=== PATIENT | female | born 1990 ===

== ENCOUNTER 2016-10-18 09:10 | Emergency (ER) | payer OTHER ==
[2016-10-18 09:14] VITALS: BP 124/75; PULSE 78; TEMP 98; O2SAT 99; BMI 24.0
--- NOTE | 2016-10-18 10:25 | ED PDOC ---
HPI: Abdomen Chief Complaint (Provider): abdominal pain History Per: Patient History/Exam Limitations: no limitations Onset/Duration Of Symptoms: Hrs (start today 6:30 am), Gradual, Persistent Outside of [place] travel?: No Current Symptoms Are (Timing): Still Present Severity: Severe Pain Scale Rating Of: 9 Location Of Pain/Discomfort: Epigastric Quality Of Discomfort: Stabbing Associated Symptoms: denies: Fever, Chills, Nausea, Vomiting, Loss Of Appetite, Chest Pain, Urinary Symptoms Exacerbating Factors: None Alleviating Factors: None Additional History Per: Patient Abnormal Vaginal Bleeding: No Last Menstral Period: unknown : 2 Para: 1 (Normal vaginal delivery.) Miscarriage: 0 <Jean-Paul Doran - Last Filed: 10/18/16 15:26> <Ari Purdy - Last Filed: 10/19/16 10:36> Time Seen by Provider: 10/18/16 09:29 Chief Complaint (Nursing): Abdominal Pain Additional Complaint(s): CC: abdominal pain. HPI: 26 yo female without PMH presents to the ED complaining of abdominal pain localized in the epigastric area 12/23, stabbing, no radiated, starting early today in the morning about 6-6:30 am, no related with any particular event, no alleviating factors no aggravating factors. Patient refers she is about 9 weeks, she does not remember the LMP. Denies fever, vomiting, nausea, headache, vaginal bleeding, vaginal discharge, any injury, no urinary symptoms. Sleeping well, no diet changes. ROS: negative except as above. 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 (Jean-Paul Doran) Supervising Attending Note - Supervising Attending Note The Documented history was done by the: Physician Architectural Engineer, Attending Physician The documented physical exam was done by the: Physician Architectural Engineer, Attending Physician The documented procedures were done by the: Physician Architectural Engineer, Attending Physician - Attestation: I have personally seen and examined this patient.: Yes I have fully participated in the care of the patient.: Yes I have reviewed all pertinent clinical information: Yes <Ari Purdy - Last Filed: 10/19/16 10:36> Past Medical History Reviewed: Nursing Documentation, Vital Signs - Medical History PMH: No Chronic Diseases - Surgical History Surgical History: No Surg Hx - Family History Family History: States: No Known Family Hx - Living Arrangements Living Arrangements: With Family - Social History Current smoker - smoking cessation education provided: No Alcohol: None Drugs: Denies <Jean-Paul Doran - Last Filed: 10/18/16 15:26> <Ari Purdy - Last Filed: 10/19/16 10:36> Vital Signs: Last Vital Signs Temp 98 F 10/18/16 09:13 Pulse 78 10/18/16 09:13 Resp BP 124/75 10/18/16 09:13 Pulse Ox 99 10/18/16 15:31 - Allergies Allergies/Adverse Reactions: Allergies Allergy/AdvReac Type Severity Reaction Status Date / Time No Known Allergies Allergy Verified 10/18/16 09:34 Review of Systems ROS Statement: Except As Marked, All Systems Reviewed And Found Negative Constitutional: Negative for: Fever, Chills, Sweats, Weakness Eyes: Negative for: Pain, Vision Change ENT: Negative for: Ear Pain, Mouth Pain Cardiovascular: Negative for: Chest Pain, Palpitations, Edema Respiratory: Negative for: Cough, Shortness of Breath Gastrointestinal: Positive for: Abdominal Pain (Epigastric area). Negative for : Nausea, Vomiting, Diarrhea Genitourinary Female: Negative for: Dysuria, Vaginal Discharge, Vaginal Bleeding , Pelvic Pain Musculoskeletal: Negative for: Neck Pain, Back Pain, Leg Pain Skin: Positive for: Other (normal color) Neurological: Negative for: Weakness, Numbness, Confusion, Altered Mental Status , Headache Psych: Negative for: Anxiety <DoranCayden bestheidi - Last Filed: 10/18/16 15:26> Physical Exam - Reviewed Nursing Documentation Reviewed: Yes Vital Signs Reviewed: Yes - Physical Exam Appears: Positive for: Uncomfortable (Due to abdominal pain) Head Exam: Positive for: ATRAUMATIC, NORMOCEPHALIC Skin: Positive for: Normal Color, Warm, Dry Eye Exam: Positive for: Normal appearance, EOMI, PERRL ENT: Positive for: Normal ENT Inspection Neck: Positive for: Normal, Supple, Trachea Midline Cardiovascular/Chest: Positive for: Regular Rate, Rhythm. Negative for: Edema, Murmur Respiratory: Positive for: Normal Breath Sounds Pulses-Carotid (L): 2+ Pulses-Carotid (R): 2+ Pulses-Radial (L): 2+ Pulses-Radial (R): 2+ Gastrointestinal/Abdominal: Positive for: Bowel Sounds, Soft, Tenderness (LUQ tenderness and LLQ to palpation.), Mass. Negative for: Distended, Guarding Back: Positive for: Normal Inspection Extremity: Positive for: Normal ROM Neurologic/Psych: Positive for: Alert, artist model II-XII, Oriented <Jean-Paul Doran - Last Filed: 10/18/16 15:26> - Laboratory Results Result Diagrams: 10/18/16 10:50 10/18/16 10:50 Urine POC: Positive - ECG O2 Sat by Pulse Oximetry: 99 - Progress Re-evaluation Time: 15:00 Condition: Re-examined, Improved <Jean-Paul Doran - Last Filed: 10/18/16 15:26> - Laboratory Results Result Diagrams: 10/18/16 10:50 10/18/16 10:50 <Ari Purdy - Last Filed: 10/19/16 10:36> Medical Decision Making <Jean-Paul Doran - Last Filed: 10/18/16 15:26> <Ari Purdy - Last Filed: 10/19/16 10:36> Medical Decision Making: Time: 10:50 Impression: 26 yo female without PMH presents to the ED complaining of abdominal pain localized in the epigastric area. Plan: CBC. CMP. Urinalysis. Urine dipstick. Beta-HCG quantitative. Renal US. Transvaginal US. Reeval (Jean-Paul Doran) US OB FINDINGS: LMP: Unknown Prior examinations from the current : None TECHNIQUE: Real-time 2D imaging, duplex and color Doppler. FINDINGS: Cardiac activity: Present Rate: 178 BPM Measurements: [place] rump length: 2.07 cm Gestational age based on CRL 8 weeks 5 days Gestational age based on gestational sac measurement 10 weeks 1 day Gestational age derived from LMP: Cannot be ascertained based in the absence of a reliable/ known LMP GOPAL based on LMP: Cannot be ascertained based in the absence of a reliable/ known LMP GOPAL based on biometry: 05/20/2017 Gestational concordance documented Yolk sac identified Uterus: Unremarkable. No Cervical abnormalities: Negative examination for cervical dilatation or effacement. Closed cervix cervical length 3.76 cm Subchorionic hemorrhage: Subcentimeter subchorionic hemorrhage. ADNEXA: Right: 3.5 x 2.9 cm. Simple cyst 1.2 cm Normal Doppler arterial waveform documented. Left: 1.4 x 2.8 cm. Normal Doppler arterial waveform documented Fluid in the cul-de-sac: None IMPRESSION: 9 weeks 3 days live intrauterine gestation. Subcentimeter subchorionic hemorrhage. US Renal PROCEDURE: Ultrasound of the Kidneys HISTORY: Left flank pain COMPARISON: None available. TECHNIQUE: Grayscale imaging was performed. FINDINGS: RIGHT KIDNEY: Measures: 11.0 cm. Normal in size, contour and echogenicity. No stone, solid mass lesion or hydronephrosis visualized. LEFT KIDNEY: Measures: 12.2 cm. Normal in size, contour and echogenicity. No stone, solid mass lesion or hydronephrosis visualized. OTHER FINDINGS: None. IMPRESSION: No hydronephrosis or nephrolithiasis. (Ari Purdy) Disposition <Jean-Paul Doran - Last Filed: 10/18/16 15:26> - Patient ED Disposition Is Patient to be Admitted: No Discussed With .: Jose Lao Doctor Will See Patient In The: Office Counseled Patient/Family Regarding: Studies Performed, Diagnosis, Need For Followup - Disposition Disposition: Routine/Home Disposition Time: 15:08 <Ari Purdy - Last Filed: 10/19/16 10:36> - Clinical Impression Clinical Impression: Abdominal pain during , Subchorionic hematoma in first trimester - Disposition Referrals: Jose Lao MD [Family Provider] - Condition: GOOD Additional Instructions: Follow up with your PCP in 2-3 days. Return for worsening. Instructions: Threatened Miscarriage (ED), Subchorionic Hemorrhage (ED)
[2016-10-18 11:09] LABS: BASO % 0.4 % (0.0-2.0); EOS % 0.5 % (0.0-4.0); HEMOGLOBIN 12.7 g/dL (12.0-16.0); LYMPH # 1.9 K/uL (1.0-4.3); LYMPH % 20.9 % (20.0-40.0); MEAN CELL VOLUME 83.4 fl (81.0-99.0); MEAN CORPUSCULAR HEMOGLOBIN 28.7 pg (27.0-31.0); MEAN CORPUSCULAR HGB CONC 34.4 g/dL (33.0-37.0); MEAN PLATELET VOLUME 8.2 fl (7.2-11.7); MONO # 0.6 K/uL (0.0-0.8); MONO % 6.3 % (0.0-10.0); NEUT # 6.6 K/uL (1.8-7.0); NEUT % 71.9 % (50.0-75.0); RBC 4.42 Mil/uL (3.80-5.20); WHITE BLOOD COUNT 9.2 K/uL (4.8-10.8)
[2016-10-18 11:23] LABS: ALB/GLOB RATIO 1.4 (1.0-2.1); ALBUMIN 4.2 g/dL (3.5-5.0); ALT/SGPT 48 U/L (9-52); AST/SGOT 26 U/L (14-36); BLOOD UREA NITROGEN 8 mg/dl (7-17); CALCIUM 9.3 mg/dL (8.4-10.2); GFR AFRICAN-AMERICAN > 60; GFR NON-AFRICAN AMERICAN > 60
--- NOTE | 2016-10-18 14:20 | US ---
PROCEDURE: Ultrasound of the Kidneys HISTORY: Left flank pain COMPARISON: None available. TECHNIQUE: Grayscale imaging was performed. FINDINGS: RIGHT KIDNEY: Measures: 11.0 cm. Normal in size, contour and echogenicity. No stone, solid mass lesion or hydronephrosis visualized. LEFT KIDNEY: Measures: 12.2 cm. Normal in size, contour and echogenicity. No stone, solid mass lesion or hydronephrosis visualized. OTHER FINDINGS: None. IMPRESSION: No hydronephrosis or nephrolithiasis.
--- NOTE | 2016-10-18 15:05 | US ---
PROCEDURE: First trimester ultrasound. Menstrual status: LMP unknown HISTORY: abdominal pain COMPARISON: None available. TECHNIQUE: Standard protocol for this study/examination. FINDINGS: LMP: Unknown Prior examinations from the current : None TECHNIQUE: Real-time 2D imaging, duplex and color Doppler. FINDINGS: Cardiac activity: Present Rate: 178 BPM Measurements: [place] rump length: 2.07 cm Gestational age based on CRL 8 weeks 5 days Gestational age based on gestational sac measurement 10 weeks 1 day Gestational age derived from LMP: Cannot be ascertained based in the absence of a reliable/ known LMP GOPAL based on LMP: Cannot be ascertained based in the absence of a reliable/ known LMP GOPAL based on biometry: 05/20/2017 Gestational concordance documented Yolk sac identified Uterus: Unremarkable. No Cervical abnormalities: Negative examination for cervical dilatation or effacement. Closed cervix cervical length 3.76 cm Subchorionic hemorrhage: Subcentimeter subchorionic hemorrhage. ADNEXA: Right: 3.5 x 2.9 cm. Simple cyst 1.2 cm Normal Doppler arterial waveform documented. Left: 1.4 x 2.8 cm. Normal Doppler arterial waveform documented Fluid in the cul-de-sac: None IMPRESSION: 9 weeks 3 days live intrauterine gestation. Subcentimeter subchorionic hemorrhage.
== END 2016-10-18 15:19 | disposition home or self-care (01) ==
LOC: H.ER 09:10
DX: O20.8 Other hemorrhage in early pregnancy (principal); Z3A.09 9 weeks gestation of pregnancy

== ENCOUNTER 2017-05-20 07:04 | Inpatient (IN) | payer OTHER ==
[2017-05-20 07:33] VITALS: BMI 29.9
[2017-05-20] MEDS: Lactated Ringer's 1,000 ML IV SCH ×4 (07:50→16:30)
--- NOTE | 2017-05-20 08:27 | OBHP ---
Datetime: 05/20/2017 08:25 Admit Comment, IP Provider: 26 yo edc 05/25 presents w/ c/o srom@ 7am. +mild ctxs prior to srom and of same intensity now. Denies any history of oral or genital HSV outbreak Past medical history: Denies Past surgical history: Denies OB history; spontaneous vaginal delivery 1 NKDA Medications: vitamins Social history denies alcohol tobacco or illicit drug use I: 39.2wks P: admit pt d/w dr gordon pcn G Presentation-Admit: Vertex Datetime: 05/20/2017 07:51 IP Adm Impression: Term, intrauterine IP Admit Plan: Admit to unit Pelvic Type - PN: Adequate Extremities - PN: Normal Abdomen - PN: Normal Breast - PN: Normal Lungs - PN: Normal Heart - PN: Normal Neurologic - PN: Normal HEENT - PN: Normal General - PN: Normal FHR - Baseline A Provider: 140 Amniotic Fluid Color, Provider: Clear Membranes, Provider: Ruptured Contraction Comments Provider: q4 Comments, ACOG Physical Exam: O+, GBS+, RI, VZNI, HIV1 iGG no genital lesions Nitrazine Provider: Positive Vital Signs Provider: Within Normal Limits IP Chief Complaint: Suspected ruptured membranes NICHD Variability Prov Fetus A: Moderate 6-25bpm NICHD Accel Fetus A IP Provider: [id number] FHR Category Provider Fetus A: Category I NICHD Decel Fetus A IP Provider: None Dilatation, Provider: 2 Effacement, Provider: 50 Station, Provider: -2 Genitourinary Exam: Normal
[2017-05-20] MEDS ORDERED: ePHEDrine 50 mg/ml Inj ONE (08:50)
[2017-05-20] MEDS ORDERED: Oxytocin 30 UNITS in Sodium Chloride 0.9% 500 ML IV ONE ×2 (09:21→21:45)
[2017-05-20 09:51] LABS: BASO % 0.4 % (0.0-2.0); EOS # 0.1 K/uL (0.0-0.7); EOS % 0.9 % (0.0-4.0); HEMOGLOBIN 12.6 g/dL (12.0-16.0); LYMPH % 28.3 % (20.0-40.0); MEAN CELL VOLUME 85.3 fl (81.0-99.0); MEAN CORPUSCULAR HEMOGLOBIN 29.1 pg (27.0-31.0); MEAN CORPUSCULAR HGB CONC 34.2 g/dL (33.0-37.0); MEAN PLATELET VOLUME 8.9 fl (7.2-11.7); MONO # 0.8 K/uL (0.0-0.8); MONO % 7.7 % (0.0-10.0); NEUT # 6.6 K/uL (1.8-7.0); NEUT % 62.7 % (50.0-75.0); NRBC % 0.1 % (0.0-0.0); RBC 4.31 Mil/uL (3.80-5.20); RED CELL DISTRIBUTION WIDTH 13.6 % (11.5-14.5); WHITE BLOOD COUNT 10.6 K/uL (4.8-10.8)
[2017-05-20] MEDS ORDERED: Fentanyl/Bupivacaine HCl 250 ML EPI ONE (15:02)
[2017-05-20] MEDS ORDERED: Lidocaine 2% PF (10 ml) Amp ONE (19:06)
[2017-05-20] MEDS ORDERED: Lidocaine 1% Inj (20ml) ONE (20:15)
--- NOTE | 2017-05-20 22:44 | OBDS ---
MATERNAL INFORMATION Estimated Blood Loss (ml): 250ml Maternal Complications: None Provider Comments: delivery of live baby boy 9/9 clear fluid cord with [address] perineum intact LABOR SUMMARY EDC: 05/25/2017 00:00 No. Babies in Womb: 1 LABOR INFORMATION Reason for Induction: Not Applicable Onset of Labor: 05/20/2017 07:00 Group B Beta Strep: Positive Steroids Given: None Reason Steroids Not Administered: Not Applicable MEMBRANES Membranes Rupture Method: Spontaneous Rupture of Membranes: 05/20/2017 07:00 Amniotic Fluid Color: Clear Amniotic Fluid Amount: Moderate Amniotic Fluid Odor: Normal VAGINAL DELIVERY Episiotomy: None Laceration Extension: N/A Laceration Type: None Laceration Repair: Not Applicable Count Comment: correct PRESENTATION/POSITION BABY A Presentation: Cephalic
[2017-05-20] MEDS ORDERED: Oxycodone/Acetaminophen 5/325 mg Tab PO PRN ×2 (22:45)
[2017-05-21 05:57] LABS: BASO % 0.2 % (0.0-2.0); EOS # 0.1 K/uL (0.0-0.7); EOS % 0.5 % (0.0-4.0); HEMOGLOBIN 11.4 g/dL (12.0-16.0); LYMPH # 2.2 K/uL (1.0-4.3); LYMPH % 19.2 % (20.0-40.0); MEAN CELL VOLUME 85.8 fl (81.0-99.0); MEAN CORPUSCULAR HEMOGLOBIN 28.4 pg (27.0-31.0); MEAN CORPUSCULAR HGB CONC 33.1 g/dL (33.0-37.0); MEAN PLATELET VOLUME 8.8 fl (7.2-11.7); MONO # 0.9 K/uL (0.0-0.8); MONO % 8.2 % (0.0-10.0); NEUT # 8.3 K/uL (1.8-7.0); NEUT % 71.9 % (50.0-75.0); RBC 4.02 Mil/uL (3.80-5.20); RED CELL DISTRIBUTION WIDTH 13.5 % (11.5-14.5); WHITE BLOOD COUNT 11.6 K/uL (4.8-10.8)
--- NOTE | 2017-05-21 10:49 | OBPPN ---
Datetime: 05/21/2017 10:47 PP Pain Prov: Within normal limits PP Nausea Prov: Denies PP Flatus Prov: Yes PP Breasts Prov: Normal PP Heart Prov: Normal PP Lungs Prov: Normal PP Abdomen/Uterus Prov: Normal PP Lochia Prov: Normal PP Vulva/Perineum Prov: Normal PP CVA Tenderness Prov: Normal PP Extremities Prov: Normal PP Progress Prov: Normal PP Impression Prov: Normal progression PP Plan Prov: Continue present management PP Progress Note Prov: stable ppd1 resting comfortably continue present caRE IP PP Procedures: None Vital Signs Provider PP: Reviewed; Within Normal Limits
--- NOTE | 2017-05-22 09:01 | OBPPN ---
Datetime: 05/22/2017 08:58 PP Pain Prov: Within normal limits PP Nausea Prov: Denies PP Flatus Prov: Yes PP BM Prov: Yes PP Breasts Prov: Normal PP Heart Prov: Normal PP Lungs Prov: Normal PP Abdomen/Uterus Prov: Normal PP Lochia Prov: Normal PP Vulva/Perineum Prov: Normal PP CVA Tenderness Prov: Normal PP Extremities Prov: Normal PP Progress Prov: Normal PP Impression Prov: Normal progression PP Plan Prov: Continue present management PP Progress Note Prov: stable ppd2,dc home today IP PP Procedures: None Vital Signs Provider PP: Reviewed; Within Normal Limits
--- NOTE | 2017-05-22 09:03 | OBDCSUM ---
Datetime: 05/22/2017 09:00 Discharged to, Provider: Home Follow up at, Provider: Disch Instr Activity: Bedrest; May be up to bathroom; May be up for meals; May Shower Disch Instr Diet: Regular Discharge Instructions, Provider: Routine instructions given Discharge Diagnosis, Provider: Term Delivered Discharge Time: 05/22/2017 09:00 Follow up in weeks, Provider: 5-6 weeks in office Disch Referrals: None Disch Activity Restrictions: No exercising; No lifting; No driving; Minimize walking; Minimize stair -climbing; No sexual activity; Nothing in vagina - [place], tampons, douche Discharge Comment, Provider: killian home today rto 5-6 weeks call office if any problem Contraception after Delivery: Undecided
[2017-05-22 18:18] VITALS: BP 120/68; PULSE 77; RESP 20; TEMP 98.8; O2SAT 99
== END 2017-05-22 13:50 | disposition home or self-care (01) | DRG 775 ==
LOC: H.EROB2 07:04 → H.L&D 07:34 → H.OB/GYN 05-21 00:38
PROVIDERS: ADMIT Specialist; ATTEND Specialist
PROC: 10E0XZZ Delivery of Products of Conception, External Approach (ICD-10-PCS; principal; 2017-05-20)
PROC: 4A1HXCZ Monitoring of Products of Conception, Cardiac Rate, External Approach (ICD-10-PCS; 2017-05-20)
DX: O99.824 Streptococcus B carrier state complicating childbirth (principal); Z37.0 Single live birth; Z3A.39 39 weeks gestation of pregnancy